=== PATIENT | male | born 1985 | race Two or more races ===

== ENCOUNTER 2016-06-06 08:35 | Emergency (ER) | payer OTHER ==
[2016-06-06] MEDS ORDERED: PROPARACAINE HCL 0.5% 300 GTTS/BOT SOLN.DROP ONE (09:06)
== END 2016-06-06 09:39 | disposition home or self-care (01) ==
LOC: ED 08:35
DX: S05.01XA Injury of conjunctiva and corneal abrasion without foreign body, right eye, initial encounter (principal); H01.003 Unspecified blepharitis right eye, unspecified eyelid; S00.251A Superficial foreign body of right eyelid and periocular area, initial encounter; X58.XXXA Exposure to other specified factors, initial encounter; Y93.H3 Activity, building and construction; Y92.9 Unspecified place or not applicable
CPT/HCPCS: 99282 ×2; A9270